=== PATIENT | female | born 1940 | race Caucasian/White ===

== ENCOUNTER 2021-06-24 11:02 | Emergency (ER) | payer MEDICARE, SELFPAY ==
[2021-06-24] VITALS (10 sets, daily range): BP systolic 85–144; BP diastolic 57–97; PULSE 96–114; RESP 16–24; TEMP 36.6; O2SAT 94–100
--- NOTE | ~2021-06-24 | XR_ITS ---
EXAMINATION: XR chest 2V DATE: 06/24/2021 11:30 INDICATION: Cough and shortness of breath. TECHNIQUE: Frontal and lateral views of the chest were obtained. COMPARISON: None. FINDINGS: A calcified right lung nodule is consistent with old granulomatous disease. There is mild a telectasis versus scarring in the lower lung zones. No pleural effusion or pneumothorax. The heart si ze is normal. IMPRESSION: 1. Mild atelectasis versus scarring in the lower lung zones. Reviewed, dictated and finalized at location A. TH SERVICE WORKER
--- NOTE | 2021-06-24 11:07 | ED.GENADULT ---
HPI - General Adult General Chief complaint: Altered Mental Status Stated complaint: AMS Time Seen by Provider: 06/24/21 11:06 Source: patient and EMS Mode of arrival: EMS Limitations: no limitations History of Present Illness HPI narrative: 81-year-old female presented to the emergency room by EMS for evaluation of 2 weeks of worsening shortness of breath and worsening generalized fatigue. Patient states she has had increased difficulty sleeping. Has had intermittent tremor and has had constipation. Granddaughter in the room with the patient states that the patient has had decreased p.o. intake and that normally she adamant water drinker. Patient states he also had 4 days of constipation. Patient denies any bowel movements but is passing flatus. Patient denies any associate abdominal pain. Patient denies any pain with urination. Patient had been started on cefdinir approximately 5 days ago by her primary care physician for a suspected urinary tract infection. Patient was also started on 50 mg p.o. trazodone to help with sleeping. Patient had a first dose of this last night and granddaughter states that this medication had no significant improvement. Related Data Home Medications Medication Instructions Recorded Confirmed albuterol sulfate 1 inh INHALATION QID PRN 06/24/21 levothyroxine 137 mcg PO DAILY 06/24/21 sertraline [Zoloft] 150 mg PO DAILY 06/24/21 trazodone 50 mg PO HS 06/24/21 Allergies Allergy/AdvReac Type Severity Reaction Status Date / Time acetaminophen Allergy Unknown Verified 06/24/21 12:18 [From Darvocet-N] aspirin Allergy Unknown Verified 06/24/21 12:16 codeine Allergy Unknown Verified 06/24/21 12:17 meperidine [From Demerol] Allergy Unknown Verified 06/24/21 12:18 mirtazapine [From Remeron] Allergy Unknown Verified 06/24/21 12:18 propoxyphene Allergy Unknown Verified 06/24/21 12:18 [From Darvocet-N] Review of Systems Review of Systems: CONSTITUTIONAL: Denies measured fever, chills, or sweats. Patient states she has had feelings of warmth. EYES: Denies visual changes, redness, or discharge. ENT: Denies rhinorrhea, congestion, sore throat, or otalgia. CARDIOVASCULAR: Denies chest pain, palpitations, or edema. RESPIRATORY: Does report increased shortness of breath. GASTROINTESTINAL: Denies abdominal pain, nausea, vomiting, or diarrhea. Does report constipation GENITOURINARY: Denies dysuria or hematuria. SKIN: Denies rash or itching. MUSCULOSKELETAL: Denies back pain, joint pain, or myalgia. NEUROLOGIC: Denies headache, numbness, or weakness. Does report seeing things/hallucinations PSYCHIATRIC: Denies anxiety or depression. Exam Narrative: APPEARANCE: Well appearing, no pain in distress, well-nourished. Head normocephalic atraumtaic. EYES: PERRLA/EOMI, conjunctivae very clear. NOSE: Normal no drainage EARS:TMS clear Morgan Garner, with good light reflex. THROAT: Pharynx clear, no exudate. NECK: Supple. No adenopathy, no masses. RESPIRATORY: Airway patent, repsirations nonlabored. Clear to auscultation bilaterally, no rales, rhonchi, wheezing. CARDIOVASCULAR: Regular rate and rhythm without murmurs rubs or gallops. ABDOMINAL: Soft, nontender, nondistended, no hepatosplenomegally, reducible periumbilical hernia MUSCULOSKELETAl: Moves all extremities. Strenght/ROM intact, No edema, No calf tenderness. NEURO: Alert. Cranial nerves II through XII intact. Good gait. Good coordination SKIN:: Warm, dry. Normal Color. Candidal rash on pannus PSYCHIATRIC: Normal affect/mood, normal interaction with parents. Const: General: no acute distress and alert Course Course Emergency Course: Patient felt that she had significant improvement in her symptoms while in the emergency department. Patient had been updated on the results midway through her stay in the emerge department and stated she felt improved. Once patient's labs were fully resulted patient and her granddaughter were updated on the results
--- NOTE | 2021-06-24 11:12 | ECG_ITS ---
Measurements Intervals [place] Rate: 112 P: 75 PA: 146 QRS: 15 QRSD: 73 T: 73 QT: 311 QTc: 426 Interpretive Statements SINUS TACHYCARDIA BASELINE ARTIFACT- I, II, III, AVR, AVL, AVF, V1-V6 ABNORMAL ECG Electronically Signed On 06-24-2021 11:24:15 GRAPHIC [employer]ESS TRADES WORKER by Ried Gurrola D.O.
[2021-06-24 12:16] LABS: Basophils Absolute Auto 0.1 K/mm3 (0.0-0.1); Basophils Percent Auto 0.6 % (0.2-1.2); Eosinophils Absolute Auto 0.2 K/mm3 (0-0.3); Eosinophils Percent Auto 2.2 % (0-4.4); Hematocrit 40.8 % (37.0-47.0); Hemoglobin 11.8 g/dL (12.0-15.0); Immature Granulocyte Absolute 0.03 K/mm3 (0.00-0.031); Immature Granulocyte Percent A 0.4 % (0-0.5); Lymphocytes Absolute Auto 1.21 K/mm3 (0.9-3.2); Lymphocytes Percent Auto 15.1 % (18.3-44.2); Mean Corpuscular HGB Conc 28.9 g/dl (32-36); Mean Corpuscular Hemoglobin 30.9 pg (26-34); Mean Corpuscular Volume 106.8 fl (80-100); Mean Platelet Volume 9.8 fl (7.4-10.4); Monocytes Absolute Auto 0.7 K/mm3 (0.1-0.6); Monocytes Percent Auto 8.5 % (2.6-8.5); Neutrophils Absolute Auto 5.9 K/mm3 (1.3-6.7); Neutrophils Percent Auto 73.2 % (45.5-73.1); Platelet Count Result 213 k/mm3 (150-375); Red Blood Count 3.82 M/mm3 (4.2-5.4); Red Cell Distribution Width 12.5 % (11.5-14.5)
[2021-06-24] MEDS: ALBUTEROL SULFATE NEB 2.5 MG/0.5 ML INH 5 MG INHALATION (12:17)
[2021-06-24 12:45] LABS: Lactic Acid Reflex 1.1 mmol/L (0.7-2.1)
[2021-06-24] MEDS: SODIUM CHLORIDE 0.9% IV 1,000 ML 999 ML IV CONT (12:56)
[2021-06-24 13:02] LABS: Alanine Aminotransferase 25 U/L (4-35); Albumin Level 4.2 g/dL (3.5-5.1); Alkaline Phosphatase 98 U/L (38-126); Aspartate Amino Transferase 34 U/L (14-36); Bilirubin,Total 0.3 mg/dL (0.2-1.3); Blood Urea Nitrogen 30 mg/dL (7-17); Calcium 9.9 mg/dL (8.4-10.2); Carbon Dioxide > 40 mmol/L (22-30); Chloride 89 mmol/L (98-107); Estimated CRCL calculation 72 ml/min; Estimated Glomerular Filt Rate 60; Glucose 141 mg/dL (65-110); Potassium 4.8 mmol/L (3.4-5.0); Sodium 140 mmol/L (137-145)
[2021-06-24 15:45] LABS: Add Urine Microscopic? YES; Appearance Urine Cloudy (Clear); Bilirubin Urine Negative (Negative); Blood Urine Negative (Negative); Color Urine Yellow (Yellow); Glucose Urine UA Negative (Negative); Ketones Urine Negative (Negative); Leukocyte Esterase Ur Negative LEU/UL (Negative); Mucus Urine Rare /lpf; Nitrate Urine Negative (Negative); Protein Urine Negative (Negative); Specific Grav Ur 1.018 (1.001-1.035); Urobilinogen Urine Negative mg/dL (<2.0); WBC Urine 0-3 /hpf
--- NOTE | 2021-06-24 17:03 | PC.NURSE ---
grand-daughter from out of town contacted ed regarding pt results and plan of care. wanting pt to be admitted. spoke with dr. estes. dr estes and myself spoke with pt and grand-daughter who has been at her bedside and pt requesting to go home. pt states will come back if shes not doing better in next few days. pt is alert and oriented x 3. 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 plan made to discharge pt.
== END 2021-06-24 17:45 | disposition home or self-care (01) ==
PROVIDERS: Emergency Provider Emergency Medicine; PCP Internal Medicine
DX: F05 Delirium due to known physiological condition (principal); R41.9 Unspecified symptoms and signs involving cognitive functions and awareness; R00.0 Tachycardia, unspecified
CPT/HCPCS: 36415; 71046; 80053; 81001; 83605; 85025; 93005; 94640; 96360; 99284; J7030

== ENCOUNTER 2021-10-06 09:51 | Emergency (ER) | payer MEDICARE, SELFPAY ==
[2021-10-06] VITALS (23 sets, daily range): BP systolic 85–110; BP diastolic 36–67; PULSE 74–105; RESP 16–24; TEMP 36.3; O2SAT 99–100
--- NOTE | 2021-10-06 10:20 | PC.NURSE ---
Dr. Curtis at bedside to assess pt.
--- NOTE | 2021-10-06 10:33 | PC.NURSE ---
Daughter called for updates. Updated provided after getting approval from patient. Brittney Sánchez [phone]
--- NOTE | 2021-10-06 10:41 | ED.NAVMDI ---
HPI - Nausea/Vomiting/Diarrhea General Chief complaint: Nausea/Vomiting/Diarrhea Stated complaint: vomiting & diarrhea Time Seen by Provider: 10/06/21 10:16 Source: patient History of Present Illness HPI Narrative: Patient presents with nausea vomiting and diarrhea. Patient ports he woke up this morning feeling sick to her stomach so she is referred to the ER for further evaluation. Arrival to the ER she reports feeling much improved. Only other complaint is her next reports she has had chronic neck pain and is slightly worse today. Denies any fevers, cough, congestion, denies any abdominal pain denies any urinary symptoms Related Data Home Medications Medication Instructions Recorded Confirmed albuterol sulfate 1 inh INHALATION QID PRN 06/24/21 levothyroxine 137 mcg PO DAILY 06/24/21 sertraline [Zoloft] 150 mg PO DAILY 06/24/21 trazodone 50 mg PO HS 06/24/21 Allergies Allergy/AdvReac Type Severity Reaction Status Date / Time acetaminophen Allergy Unknown Verified 06/24/21 12:18 [From Darvocet-N] aspirin Allergy Unknown Verified 06/24/21 12:16 codeine Allergy Unknown Verified 06/24/21 12:17 meperidine [From Demerol] Allergy Unknown Verified 06/24/21 12:18 mirtazapine [From Remeron] Allergy Unknown Verified 06/24/21 12:18 propoxyphene Allergy Unknown Verified 06/24/21 12:18 [From Darvocet-N] Review of Systems Review of Systems: CONSTITUTIONAL: Denies fever, chills, or sweats. EYES: Denies visual changes, redness, or discharge. ENT: Denies rhinorrhea, congestion, sore throat, or otalgia. CARDIOVASCULAR: Denies chest pain, palpitations, or edema. RESPIRATORY: Denies cough or dyspnea. GASTROINTESTINAL: Reported nausea vomiting diarrhea GENITOURINARY: Denies dysuria or hematuria. SKIN: Denies rash or itching. MUSCULOSKELETAL: Denies back pain, joint pain, or myalgia. NEUROLOGIC: Denies headache, numbness, dizziness, or weakness. PSYCHIATRIC: Denies anxiety or depression. All systems reviewed & are unremarkable except as noted in HPI and below PMFSH Past Medical History Medical History Hypothyroidism Social History Social History Living arrangements: residential Exam Narrative: GENERAL: Well-appearing, well-nourished, and in no acute distress. HEAD: Normocephalic, atraumatic. EYES: PERRLA and EOMI. ENT: Nares clear, no rhinorrhea or epistaxis. Mucous membranes moist. NECK: Supple. No masses. No JVD CHEST: Clear to auscultation. No respiratory distress. No wheezes rales or rhonchi HEART: Regular rate and rhythm. No murmur heard. Normal peripheral pulses. ABDOMEN: Soft, nontender, nondistended, normal active bowel sounds. EXTREMITIES: Normal range of motion. No edema. SKIN: Warm, dry, no rash. NEURO: No focal deficits. Alert and oriented x3. PSYCH: Normal mood and affect. Course Reevaluation(s) Reevaluation #1: Patient continues report feeling much improved results and plan reviewed with patient. Patient is comfortable outpatient plan. Date: 10/06/21 Time: 12:36 Vital Signs Vital signs: Vital Signs Temperature 36.3 C L 10/06/21 09:55 Pulse Rate 100 10/06/21 09:55 Respiratory Rate 20 10/06/21 09:55 Blood Pressure 108/62 10/06/21 09:55 Pulse Oximetry 100 10/06/21 09:55 Temperature 36.3 C L 10/06/21 09:55 Pulse Rate 74 10/06/21 13:22 Respiratory Rate 16 10/06/21 13:22 Blood Pressure 110/59 L 10/06/21 13:22 Pulse Oximetry 100 10/06/21 13:22 MDM - Nausea/Vomiting/Diarrhea MDM Narrative Medical decision making narrative: H&P as above, vss, pt looks clinically well, exam with nonacute abdomen, labs similar when compared to prior, additional labs/img considered, symptomatic relief available as needed, on reevaluation pt continues to looks clinically well. Suspect viral process, dns severe sepsis, bowel obstruction, appendicitis, severe dehydra
[2021-10-06] MEDS: CYCLOBENZAPRINE HCL 10 MG TABLET PO (11:03)
[2021-10-06] MEDS: SODIUM CHLORIDE 0.9% IV 500 ML 999 ML IV CONT (11:03)
[2021-10-06] MEDS: ONDANSETRON INJ 4 MG/2 ML VIAL IV PUSH (11:03)
[2021-10-06 11:11] LABS: Basophils Percent Auto 0.3 % (0.2-1.2); Eosinophils Absolute Auto 0.1 K/mm3 (0-0.3); Hematocrit 34.9 % (37.0-47.0); Hemoglobin 10.1 g/dL (12.0-15.0); Immature Granulocyte Absolute 0.04 K/mm3 (0.00-0.031); Immature Granulocyte Percent A 0.3 % (0-0.5); Lymphocytes Absolute Auto 0.37 K/mm3 (0.9-3.2); Lymphocytes Percent Auto 3.2 % (18.3-44.2); Mean Corpuscular HGB Conc 28.9 g/dl (32-36); Mean Corpuscular Hemoglobin 30.1 pg (26-34); Mean Corpuscular Volume 104.2 fl (80-100); Mean Platelet Volume 9.7 fl (7.4-10.4); Monocytes Absolute Auto 0.9 K/mm3 (0.1-0.6); Monocytes Percent Auto 7.8 % (2.6-8.5); Neutrophils Absolute Auto 10.3 K/mm3 (1.3-6.7); Neutrophils Percent Auto 87.4 % (45.5-73.1); Platelet Count Result 237 k/mm3 (150-375); Red Blood Count 3.35 M/mm3 (4.2-5.4); Red Cell Distribution Width 12.8 % (11.5-14.5); White Blood Count 11.7 K/mm3 (4.5-10.0)
--- NOTE | 2021-10-06 11:16 | PC.NURSE ---
Patient report given to CARMEN Álvarez. All questions answered and care of patient transferred.
[2021-10-06 11:21] LABS: Alanine Aminotransferase 14 U/L (4-35); Albumin Level 4.1 g/dL (3.5-5.1); Alkaline Phosphatase 108 U/L (38-126); Aspartate Amino Transferase 30 U/L (14-36); Bilirubin,Total 0.2 mg/dL (0.2-1.3); Blood Urea Nitrogen 28 mg/dL (7-17); Calcium 9.2 mg/dL (8.4-10.2); Carbon Dioxide > 40 mmol/L (22-30); Chloride 98 mmol/L (98-107); Estimated Glomerular Filt Rate > 60; Glucose 118 mg/dL (65-110); Lipase 97 U/L (23-300); Potassium 4.8 mmol/L (3.4-5.0); Sodium 139 mmol/L (137-145)
[2021-10-06 11:35] LABS: Hypochromasia 1+ (NORMAL); Platelet Estimate Adequate (Adequate); Stomatocytes 2+ (NORMAL)
[2021-10-06 12:08] LABS: Add Urine Microscopic? NO; Appearance Urine Clear (Clear); Bilirubin Urine Negative (Negative); Blood Urine Negative (Negative); Color Urine Yellow (Yellow); Glucose Urine UA Negative (Negative); Ketones Urine Negative (Negative); Leukocyte Esterase Ur Negative LEU/UL (Negative); Nitrate Urine Negative (Negative); Protein Urine Negative (Negative); Specific Grav Ur 1.019 (1.001-1.035); Urobilinogen Urine Negative mg/dL (<2.0)
--- NOTE | 2021-10-06 12:38 | PC.NURSE ---
[facility] contacted for transport at this time per EDP - pt requires o2 and is bedbound
--- NOTE | 2021-10-06 12:40 | PC.NURSE ---
Family updated on plan for transport home, denies further questions.
== END 2021-10-06 13:23 | disposition home or self-care (01) ==
PROVIDERS: Emergency Provider Emergency Medicine; PCP Internal Medicine
DX: R11.2 Nausea with vomiting, unspecified (principal); E03.9 Hypothyroidism, unspecified; R19.7 Diarrhea, unspecified; M54.2 Cervicalgia; G89.29 Other chronic pain
CPT/HCPCS: 36415; 51701; 80053; 81003; 83690; 85025; 96361; 96374; 99284; A9270; J2405; J7040